=== PATIENT | female | born 1975 | race Caucasian/White ===

== ENCOUNTER 2021-03-06 22:21 | Inpatient (IN) | payer OTHER ==
[~2021-03-06] VITALS: Ht 175.3 cm; Wt 68.0 kg
[2021-03-06 22:25] VITALS: BP 103/55
[2021-03-07 00:19] LABS: ABSOLUTE NEUTROPHILS 13.5 thou/uL (1.4-8.2); BASOPHILS 0.4 % (0.0-2.0); EOSINOPHILS 0.9 % (0.0-3.0); HEMATOCRIT 39.5 % (37.0-47.0); HEMOGLOBIN 13.3 gm/dL (12.0-15.0); LYMPHOCYTES 10.5 % (24.0-44.0); MCH 31.7 pg (26.0-34.0); MCHC 33.7 g/dL (28.0-37.0); MONOCYTES 5.6 % (1.0-8.0); PLATELET COUNT 266 thou/uL (150-400); POLYS 82.6 % (36.0-66.0); RDW 12.9 % (10.5-14.5); WBC 16.3 thou/uL (4.0-11.0)
[2021-03-07 00:26] LABS: CALCIUM 8.1 mg/dL (8.5-10.1); CREATININE 1.1 mg/dL (0.6-1.0); POTASSIUM 3.5 mmol/L (3.5-5.1)
[2021-03-07 00:32] LABS: ALBUMIN 3.9 g/dL (3.4-5.0); TOTAL BILIRUBIN 0.3 mg/dL (0.2-1.0)
[2021-03-07 00:36] VITALS: BP 103/55
[2021-03-07 00:58] VITALS: BP 108/64
[2021-03-07] MEDS ORDERED: IMITREX 50 MG T50 MG PO (01:54)
[2021-03-07] MEDS ORDERED: ONDANSETRON HCL4 M2 PO (01:54)
[2021-03-07 02:29] VITALS: BP 144/83
--- NOTE | 2021-03-07 03:50 | NUR ---
Pt. continues to be in a large amount of pain in her rib cage area. Many calls placed to Dr. Craven (see poc).
--- NOTE | 2021-03-07 04:45 | NUR ---
New pain med orders received from Dr. Craven (see cpoe).
--- NOTE | 2021-03-07 06:30 | NUR ---
Pt. verbalizes that she is in less pain now. Bed alarm is on. Pt. in bed watching TV.
--- NOTE | 2021-03-07 06:44 | NUR ---
Pt. arrived to the unit from the emergency room accompanied by staff. She is alert and oriented. Admission assessment and history is completed. Pt. is in pain in her rib cage and tenses up with movement. Unable to skin assess as she will not roll over due to the pain. Pt. voiced that she has skin cancer removed from her back and has sutures present. Iv pain medication given (see emar). Bed alarm is on.
[2021-03-07 08:50] VITALS: BP 141/85
[2021-03-07 17:07] VITALS: BP 176/93
[2021-03-07 20:10] VITALS: BP 143/94
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
--- NOTE | 2021-03-08 04:50 | NUR ---
Assumed pt care at 1900. A/OX4,VSS. C/o pain to ruslan rib cages,medicated per EMAR with Fentanyl/[place] with relief reported. Went downstairs for CT scan via bed tolorated well. Pt incontinent of bladder,changed as needed. NSR on telemetry. Fall precautions in place,will continue to monitor pt.
[2021-03-08 06:09] VITALS: BP 136/67
[2021-03-08 08:08] VITALS: BP 133/69
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
--- NOTE | 2021-03-08 15:32 | NUR ---
ASSUMED PT CARE THIS AM. PT A&OX4, ABLE TO MAKE NEEDS KNOWN. PT HAS BEEN CONTINENT THIS SHIFT, UP TO THE BATHROOM WITH ASSIST. PATIENT IS ON 2 LITERS OF OXYGEN VIA NC. IV PATENT, SALINE LOCKED. MEDICATIONS TAKEN WITHOUT ISSUE. PATIENT GIVEN PAIN MEDICATION PER EMAR FOR PAIN IN HER RIBS, RESPONDED ACCORDINGLY. FALL PRECAUTIONS ARE IN PLACE DUE TO PAIN AND WEAKNESS WITH MOVEMENT. CALL LIGHT WITHIN REACH.
[2021-03-08 17:15] VITALS: BP 146/81
[2021-03-08 20:29] VITALS: BP 145/69
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
[2021-03-09 07:43] VITALS: BP 116/67
[2021-03-09] MEDS ORDERED: NORCO5 PO (08:54)
[2021-03-09 10:41] VITALS: BP 116/67
--- NOTE | 2021-03-09 10:55 | NUR ---
Pt AXOX4. Continues with pain in rib area. Medication seems to make pain managable. at bedside. Back suture wound opened. Contacted secondary set up man. Pt has appointment to have area resutured due to melatoma removal. Discharging home. Educated regarding discharge instructions.
== END 2021-03-09 12:47 | disposition home or self-care (01) | DRG 184 ==
LOC: ER 22:21 → 4W 03-07 00:32 → EROBS 03-07 00:32 → ER 03-07 01:08 → 4W 03-07 01:08
PROVIDERS: Emergency Medicine; ADMIT Surgery; ATTEND Surgery
PROC: 0HQ0XZZ Repair Scalp Skin, External Approach (ICD-10-PCS; principal; 2021-03-07)
DX: S22.43XA Multiple fractures of ribs, bilateral, initial encounter for closed fracture (principal); J98.11 Atelectasis; F17.210 Nicotine dependence, cigarettes, uncomplicated; S01.91XA Laceration without foreign body of unspecified part of head, initial encounter; Z88.0 Allergy status to penicillin; Z88.1 Allergy status to other antibiotic agents; Z72.89 Other problems related to lifestyle; V87.8XXA Person injured in other specified noncollision transport accidents involving motor vehicle (traffic), initial encounter; Y93.89 Activity, other specified; Y92.89 Other specified places as the place of occurrence of the external cause; Y99.8 Other external cause status; Z23 Encounter for immunization
CPT/HCPCS: 10047